=== PATIENT | male | born 1995 | race Two or more races ===

== ENCOUNTER 2020-01-02 07:43 | Emergency (ER) | payer OTHER ==
[~2020-01-02] VITALS: Ht 177.8 cm; Wt 113.0 kg
[2020-01-02] MEDS ORDERED: LEVETIRACETAM 1000MG/100ML 100 ML IV ONE (08:00)
[2020-01-02 08:19] LABS: BASOPHILS % 0.5 % (0.0-2.0); EOSINOPHILS % 1.3 % (0.0-5.0); HEMATOCRIT. 42.3 % (42.0-52.0); HEMOGLOBIN. 14.3 g/dL (14.0-18.0); MEAN CORPUSCULAR HEMOGLOBIN 28.8 pg (28.0-32.0); MEAN PLATELET VOLUME 8.7 fl (7.4-10.4); MONOCYTES % 5.7 % (2.0-8.0); NEUTROPHILS % 70.5 % (40.0-76.0); PLATELET 280 x1000/uL (130-400); RED BLOOD CELL COUNT 4.98 mill/uL (4.7-6.1); RED CELL DISTRIBUTION WIDTH 13.8 % (11.6-14.6)
[2020-01-02 08:23] LABS: CHLORIDE 108 mEq/L (98-107)
[2020-01-02 08:29] LABS: ETHANOL BLOOD < 10 mg/dL
[2020-01-02 09:39] VITALS: BP 149/89
== END 2020-01-02 09:44 | disposition home or self-care (01) ==
LOC: ER 07:43
DX: T59.811A Toxic effect of smoke, accidental (unintentional), initial encounter (principal); G40.909 Epilepsy, unspecified, not intractable, without status epilepticus; M79.18 Myalgia, other site; J45.909 Unspecified asthma, uncomplicated; J68.9 Unspecified respiratory condition due to chemicals, gases, fumes and vapors; Y92.015 Private garage of single-family (private) house as the place of occurrence of the external cause
CPT/HCPCS: 36415; 71045; 80053; 80320; 82962; 85025; 93005; 96365; 99285; J1953; G0480

== ENCOUNTER 2020-02-12 16:40 | Emergency (ER) | payer OTHER ==
[~2020-02-12] VITALS: Ht 182.9 cm; Wt 145.0 kg
[2020-02-12 16:55] VITALS: BP 165/100
[2020-02-12] MEDS ORDERED: CEFTRIAXONE SODIUM 1 G/VIAL IM ONE (18:30)
[2020-02-12] MEDS ORDERED: IBUPROFEN 600MG TABLET PO STA (18:30)
[2020-02-12] MEDS ORDERED: LIDOCAINE HCL 1% 20ML VIAL (Pyxis) INJ INFIL ONE (18:30)
== END 2020-02-12 19:05 | disposition home or self-care (01) ==
LOC: ER 16:40
DX: H60.92 Unspecified otitis externa, left ear (principal); H60.12 Cellulitis of left external ear
CPT/HCPCS: 96372; 99283; J0696; J3490